=== PATIENT | male | born 1945 | race Caucasian/White ===

== ENCOUNTER 2021-10-25 10:36 | Inpatient (IN) | payer MEDICARE, BC, SELFPAY ==
[2021-10-25] VITALS (45 sets, daily range): BP systolic 82–142; BP diastolic 30–64; PULSE 34–224; RESP 12–41; TEMP 36.4–37.1; O2SAT 91–97
--- NOTE | 2021-10-25 10:30 | DI.RAD_ITS ---
Exam(s) XR CHEST 2V PA LATERAL EXAM: XR CHEST 2V PA LATERAL CLINICAL HISTORY: bradycardia TECHNIQUE: 2D digital imaging was performed. COMPARISON: No exams were available for comparison FINDINGS: MEDIASTINUM: Normal. HEART: Normal. PULMONARY VASCULATURE: Normal. LUNGS: Clear. PLEURAL SPACE: No pleural effusion or pneumothorax. BONE:Degenerative changes of the thoracic spine, unremarkable for age. IMPRESSION: No acute abnormality. DATA REPOSITORY: RADIATION DOSE DELIVERED:
--- NOTE | 2021-10-25 10:30 | RT.EKG_ITS ---
APPROVED REPORT Exam: Resting ECG Reason for Exam: dizzy Patient Location: E HR:66 bpm ECG Measurements Heart Rate 66 AXIS AL 147 P 35 QRSd 79 QRS 10 QT 429 T 81 QTc 451 Conclusion Sinus rhythm...normal P axis, V-rate 60- 99 Ventricular bigeminy...bigeminy string>4 w/ V complexes
--- NOTE | 2021-10-25 10:47 | W.ED.GENAD ---
Discharge Plan Disposition Patient Disposition: [facility] INPATIENT Condition: Stable Discharge Details Clinical Impression: Symptomatic bradycardia Primary Care Provider: Unknown,Unknown ED Provider: Malik Oseguera Home Meds and New Rx's Prescriptions: No Action metformin 500 mg Tablet 500 mg PO DAILY metoprolol succinate 200 mg Tablet Extended Release 24 Hr 200 mg PO DAILY clopidogrel 75 mg Tablet 75 mg PO DAILY amlodipine 5 mg Tablet 5 mg PO DAILY tamsulosin 0.4 mg Capsule 0.4 mg PO DAILY lisinopril 10 mg Tablet 10 mg PO DAILY finasteride 5 mg Tablet 5 mg PO DAILY coenzyme Q10 [CoQ-10] 100 mg Capsule 200 mg PO DAILY omega 5-fwh-fej-fish oil [Fish Oil] 1,200 (144-216) mg Capsule 1 cap PO DAILY aspirin 81 mg Capsule 81 mg PO DAILY Medical Decision Making 76-year-old male with history of coronary artery disease status post a total of 4 stents over 3 procedures. He has felt near syncopal 3 times in approximately 3 weeks. No syncope, but family have noted episodes of bradycardia. Today he was taking a shower, felt faint and hot, was noted to have bradycardia in the mid 30s. His son is a nurse in this ER and therefore the patient sought evaluation. [facility] typically has been seen [facility] [place], [place]. He reports to me that his watch has alarmed for bradycardia to the 40s for 10 minutes episodes at least 2 times in the past few weeks. He arrives with a pulse of 34, he is in bigeminy. He is normotensive, alert and interactive. He does take metoprolol 200 mg daily. Laboratories reveal normal troponin. Sodium was 135, potassium 5.3 chloride 100, bicarb 20, BUN 21 creatinine is 1.3. White blood cell count is elevated at 16, hematocrit 43 platelets 355. Chest x-ray with no acute findings, rapid COVID test neg. I received and reviewed the patient's records from the [facility]. He has diagnosis of coronary artery disease, BPH, type 2 diabetes, hyperlipidemia, hypertension. History history of medication use: 5 mg daily, aspirin 81 mg daily, vitamin D3 25 mcg daily, Plavix 75 mg daily, co-Q 200 mg daily, finasteride 5 mg daily, lisinopril 10 mg daily, lovastatin 40 mg daily, metformin 500 mg 3 times per day, metoprolol succinate 200 mg daily, tamsulosin 0.4 mg daily. Will consider admission for observation of symptomatic bradycardia that is most likely due to excessive amount of beta-waldo. HPI General Mode of arrival: ambulatory. Date/Time Provider Initiated Documentation: 10/25/21 10:37. Limitations to Documentation: no limitations. Information obtained by: patient and family. History of Present Illness 76 year old M presents to the emergency department with the chief complaint of Lightheaded, bradycardia, described as moderate, and is localized to the head. Patient reports no radiation. Patient started experiencing this hour(s) and it has been intermittent. Patient notes denies confusion, headaches and syncope. Patient did receive the following treatments prior to arrival, none Related Data Home Medications Medication Instructions Recorded Confirmed amlodipine 5 mg tablet 5 mg PO DAILY 10/25/21 10/25/21 aspirin 81 mg capsule 81 mg PO DAILY 10/25/21 10/25/21 clopidogrel 75 mg tablet 75 mg PO DAILY 10/25/21 10/25/21 coenzyme Q10 100 mg capsule 200 mg PO DAILY 10/25/21 10/25/21 (CoQ-10) finasteride 5 mg tablet 5 mg PO DAILY 10/25/21 10/25/21 lisinopril 10 mg tablet 10 mg PO DAILY 10/25/21 10/25/21 metformin 500 mg tablet 500 mg PO DAILY 10/25/21 10/25/21 metoprolol succinate 200 mg 200 mg PO DAILY 10/25/21 10/25/21 tablet,extended release 24 hr omega 7-qhq-zhc-fish oil 1,200 mg 1 cap PO DAILY 10/25/21 10/25/21 (144 mg-216 mg) capsule (Fish Oil) tamsulosin 0.4 mg capsule 0.4 mg PO DAILY 10/25/21 10/25/21 Allergies Allergy/AdvReac Type Severity Reaction Status Date / Time Sulfa (Sulfonamide Allergy Unverified 10/25/21 11:07 Antibiotics) General Stated Complaint: GenMedical TEMO: 2 Review of Systems Narrative: No syncope, otherwise well. Seen primarily at [facility]. 8 systems reviewed and otherwise neck PFSH All Active Problems (Updated 10/25/21 @ 12:43 by Malik Oseguera MD) Symptomatic bradycardia (Acute) BPH (benign prostatic hyperplasia) (Chronic) Hypertension (Chronic) Hyperlipidemia (Acute) DM2 (diabetes mellitus, type 2) (Acute) Coronary artery disease (Chronic) Social History Smoking/Tobacco Use Status: Never Smoking risk assessment performed?: Yes Alcohol Intake: never Drug use: Never Do you feel safe at home: Yes Do you feel safe in your relationship?: Yes Exam Narrative Exam Narrative: GEN: awake, alert, oriented 3. Pleasant, well groomed, interactive. HEAD: Normocephalic, atraumatic ENT: Mucous membranes moist, oropharynx unremarkable, External ear exam unremarkable EYES: PERRL, EOMI NECK: Full ROM, no FRANCISCO JAVIER, no menigismus CHEST/RESP: Nontender, clear to auscultation bilateral, no wheeze/rhonchi/rales CARDIOVASCULAR: Regular and bradycardic,, no murmur, rub kali. 2+ Rad pulse bilateral ABDOMEN: Soft, nontender, no mass. +Bowel sounds EXT: Full ROM, no edema, no rash Neuro: Grossly normal neurologic exam, conversant, interactive. Psych: Speech fluent, thoughts congruent, affect normal Course Vital Signs Vital signs: Vital Signs Temperature 36.4 C L 10/25/21 10:40 Pulse 34 L 10/25/21 10:40 Respiratory Rate 16 10/25/21 10:40 Blood Pressure 114/46 L 10/25/21 10:40 Pulse Oximetry 95 10/25/21 10:40 Temperature 36.4 C L 10/25/21 10:40 Temperature Source Temporal Artery Scan 10/25/21 10:40 Pulse 34 L 10/25/21 10:40 Respiratory Rate 16 10/25/21 10:40 Blood Pressure 114/46 L 10/25/21 10:40 Blood Pressure Position Sitting 10/25/21 10:40 Pulse Oximetry 95 10/25/21 10:40 Oxygen Delivery Method Room Air 10/25/21 10:40 Oxygen Flow Rate 0 10/25/21 10:40 Pain Level 0 10/25/21 10:40
[2021-10-25 11:08] LABS: Abs Immature Grans 0.38 10^3/uL (0.0-0.06); Absolute Basophil Count 0.05 10^3/uL (0.0-0.2); Absolute Eosinophil Count 0.18 10^3/uL (0.0-0.7); Absolute Lymphocyte Count 1.68 10^3/uL (1.2-3.4); Absolute Monocyte Count 0.91 10^3/uL (0.1-0.8); Basophils % 0.3; Eosinophils % 1.1; HCT 43.6 % (40.0-50.0); HGB 14.1 g/dL (13.5-17.5); Immature Grans % 2.3; Lymphocytes % 10.1; MCH 30.9 pg (27.0-33.0); MCHC 32.3 % (32.0-36.0); MCV 95 fL (80-95); Monocytes % 5.5; Neutrophils % 80.7; Platelet Count 355 10^3/uL (130-400); RBC 4.57 10^6/uL (4.36-5.78); RDW 12.7 % (11.8-14.1); WBC 16.62 10^3/uL (4.4-10.8)
[2021-10-25 11:10] LABS: Absolute Neutrophil Count 13.41 10^3/uL (1.2-6.7)
[2021-10-25 11:23] LABS: INR 1.3 (0.9-1.1); PTT Activated 24.2 sec (21.0-27.5); Prothrombin Time 12.7 sec (9.3-11.0)
[2021-10-25 11:29] LABS: ALT 43 U/L (16-63); AST 26 U/L (15-37); Albumin 3.6 g/dL (3.4-5.0); Alkaline Phosphatase 68 U/L (46-116); Anion Gap 6.5 mmol/L (3-11); BUN 21 mg/dL (7-18); Bilirubin, Total 0.7 mg/dL (0.2-1.0); CO2 28.5 mmol/L (21.0-32.0); CREATININE 1.3 mg/dL (0.70-1.30); Calcium 9.4 mg/dL (8.5-10.1); Chloride 100 mmol/L (98-107); Estimated GFR 53.53 (mL/min/1.73m2); Glucose 183 mg/dL (74-106); Potassium 5.3 mmol/L (3.5-5.1); Sodium 135 mmol/L (136-145); Total Protein 8.5 g/dL (6.4-8.2); Troponin I < 50 ng/L (<or=60)
[2021-10-25 11:55] LABS: COVID-19 PCR Negative (Negative); Influenza A PCR Negative (Negative); Influenza B PCR Negative (Negative); RSV PCR Negative (Negative)
[2021-10-25 11:59] LABS: Source Nasopharynx
--- NOTE | 2021-10-25 12:49 | HPE_ITS ---
Date of service: 10/25/21 Time of Service: 12:50 Assessment and Plan Assessment and plan (1) Symptomatic bradycardia: Status: Acute Assessment and plan: hold Toprol XL; give calcium gluconate, give gentle hydration; monitor rate and rhythm overnight w/ serial troponin levels and repeat EKG. Professional time spent interviewing and examining patient, discussion of goals of care with hospital team (care management, nursing and consulting professionals) was 60 minutes. (2) Coronary artery disease: Status: Chronic Assessment and plan: continue Plavix and ASA; hold beta waldo; check serial troponin I levels and EKG (3) DM2 (diabetes mellitus, type 2): Status: Acute Assessment and plan: will hold metformin until he has ruled completely out for ACS, if no further hypotension after his fluid bolus, could consider resumption of his metformin as he is not in ERNIE and not in CHF. will monitor glucose AC/HS and cover w/ SSI sensitive level (4) Hypertension: Status: Chronic Assessment and plan: currently mildly hypotensive will give iv fluids; hold amlodipine, Toprol XL, and lisinopril. monitor BP response (5) Hyperlipidemia: Status: Acute Assessment and plan: currently only taking omega 3 dha/epa fish oil; not on a statin (6) BPH (benign prostatic hyperplasia): Status: Chronic Assessment and plan: currently on flomax but will withold in setting of hypotension History of Present Illness History of Present Illness Chief Complaint: lightheaded, slow heart rate Narrative: 76 yr old male w/ PMH of CAD (s/p 4 stents total over 3 separate occasions) who has DM2 treated w/ oral meds (metformin) and HTN (on lisinopril, amlodipine and Toprol XL) who has been experiencing symptomatic bradycardia off and on for past 3 weeks in which he will get lightheaded and near syncopal. Today he was in the shower when he felt like he was going to pass out and his pulse was noted to be in the 30's. he wears a smart watch which monitors his HR and patient states that his watch has alarmed for bradycardia in the 40's for as long as 10 minutes at time and this happened at least twice in the last 3 weeks. Upon evaluation in the ER his pulse was 34 and his rhythm was sinus bradycardia w/ ventricular bigeminy. EKG did not show any advanced heart block but demonstrated sinus bradycardia w/ventricular bigeminy at rate of 66 bpm. His labs including CBC, CMP, troponin were all unremarkable except for WBC of 16,000. he has no fever, chills, or cough. SARS-COV2 nasal PCR was negative. He was mildly hypotensive on arrival at 96/32. He was given a bolus of iv fluids and per my recommendation is getting calcium gluconate to counteract the effects of his beta waldo. He will be admitted to med/surg on telemetry on observation status. His amlodipine, Toprol XL, finasteride and lisinopril will all be held to avoid hypotension and the Toprol will be held to reduce his bradycardia. Addendum: nursing will not allow med/surg admission d/t patient receiving calcium gluconate; therefore patient will be placed in ICU overnight. If his bradycardia resolves then he will be discharged home tomorrow off his beta waldo and with follow up cardiac monitoring. [facility] All Active Problems (Updated 10/25/21 @ 15:15 by Vlad Rosario MD) Symptomatic bradycardia (Acute) BPH (benign prostatic hyperplasia) (Chronic) Hypertension (Chronic) Hyperlipidemia (Acute) DM2 (diabetes mellitus, type 2) (Acute) Coronary artery disease (Chronic) Medical History (Updated 10/25/21 @ 15:15 by Vlad Rosario MD) History of non-ST elevation myocardial infarction (NSTEMI) Surgical History (Updated 10/25/21 @ 15:19 by lVad Rosario MD) Status post cholecystectomy s/p open cholecystectomy Status post primary angioplasty with coronary stent (~2005) 4 stents total over 3 procedures, last procedure approximately 2005, last one was done in [place], [place]; prior to that he had PCI done at [place], [place] Social History Smoking/Tobacco Use Status: Never Smoking risk assessment performed?: Yes Alcohol Intake: never Drug use: Never Do you feel safe at home: Yes Do you feel safe in your relationship?: Yes Meds Allergies and Home Medications Allergies Allergy/AdvReac Type Severity Reaction Status Date / Time Sulfa (Sulfonamide Allergy Unverified 10/25/21 11:07 Antibiotics) Home Medications Medication Instructions Recorded Confirmed Type amlodipine 5 mg tablet 5 mg PO DAILY 10/25/21 10/25/21 History aspirin 81 mg capsule 81 mg PO DAILY 10/25/21 10/25/21 History clopidogrel 75 mg tablet 75 mg PO DAILY 10/25/21 10/25/21 History coenzyme Q10 100 mg capsule 200 mg PO DAILY 10/25/21 10/25/21 History (CoQ-10) finasteride 5 mg tablet 5 mg PO DAILY 10/25/21 10/25/21 History lisinopril 10 mg tablet 10 mg PO DAILY 10/25/21 10/25/21 History metformin 500 mg tablet 500 mg PO DAILY 10/25/21 10/25/21 History metoprolol succinate 200 mg 200 mg PO DAILY 10/25/21 10/25/21 History tablet,extended release 24 hr omega 0-jap-uqj-fish oil 1,200 mg 1 cap PO DAILY 10/25/21 10/25/21 History (144 mg-216 mg) capsule (Fish Oil) tamsulosin 0.4 mg capsule 0.4 mg PO DAILY 10/25/21 10/25/21 History Exam Narrative Exam Narrative: Elderly white male in no acute distress sitting up in bed alert and oriented x3. HEENT is remarkable for glasses oropharynx noninjected teeth are in fair repair Neck is supple no JVD normal carotid pulses no thyromegaly Lungs are clear to auscultation Heart rate is in the 70s and regular with occasional ectopic beats no audible murmur rub gallop and no palpable thrill heave PMI is nondisplaced over the apex Abdomen is obese soft and nontender normal bowel sounds no guarding no rebound tenderness no bruits no organomegaly Extremities without peripheral cyanosis or edema he has intact pedal pulses normal sensation to light touch Neurologic exam grossly intact no dysarthric speech no focal motor or sensory deficits. No focal cranial nerve abnormalities. Results Labs Result diagrams: 10/25/21 11:00 10/25/21 11:00 Labs: Laboratory Results - last 24 hr 10/25/21 10/25/21 10/25/21 11:00 11:00 11:00 WBC 16.62 H RBC 4.57 Hgb 14.1 Hct 43.6 MCV 95 MCH 30.9 MCHC 32.3 RDW 12.7 Plt Count 355 MPV 9.0 Immature Gran % 2.3 Neutrophils % 80.7 Lymphocytes % 10.1 Monocytes % 5.5 Eosinophils % 1.1 Basophils % 0.3 Nucleated RBC % 0.0 Absolute Neutrophils 13.41 H Absolute Lymphocytes 1.68 Absolute Monocytes 0.91 H Absolute Eosinophils 0.18 Absolute Basophils 0.05 PT 12.7 H INR 1.3 H APTT 24.2 Sodium 135 L Potassium 5.3 H Chloride 100 Carbon Dioxide 28.5 Anion Gap 6.5 BUN 21 H Creatinine 1.3 Estimated GFR/1.73 m2 53.53 Glucose 183 H Calcium 9.4 Magnesium 2.0 Total Bilirubin 0.7 AST 26 ALT 43 Alkaline Phosphatase 68 Troponin I < 50 Total Protein 8.5 H Albumin 3.6 COVID-19 Source SARS-CoV-2 (PCR) Influenza Type A (PCR) Influenza Type B (PCR) RSV (PCR) 10/25/21 11:13 WBC RBC Hgb Hct MCV MCH MCHC RDW Plt Count MPV Immature Gran % Neutrophils % Lymphocytes % Monocytes % Eosinophils % Basophils % Nucleated RBC % Absolute Neutrophils Absolute Lymphocytes Absolute Monocytes Absolute Eosinophils Absolute Basophils PT INR APTT Sodium Potassium Chloride Carbon Dioxide Anion Gap BUN Creatinine Estimated GFR/1.73 m2 Glucose Calcium Magnesium Total Bilirubin AST ALT Alkaline Phosphatase Troponin I Total Protein Albumin COVID-19 Source Nasopharynx SARS-CoV-2 (PCR) Negative Influenza Type A (PCR) Negative Influenza Type B (PCR) Negative RSV (PCR) Negative Last Vital Signs Temp 36.4 C L 10/25/21 10:40 Pulse 64 10/25/21 11:46 Resp 17 10/25/21 11:46 BP 93/32 L 10/25/21 11:46 Pulse Ox 95 10/25/21 11:46
[2021-10-25] MEDS: Calcium Gluconate 4.65 MEQ/10 ML VIAL 4.65 MG IVP (13:02)
[2021-10-25] MEDS: Normal Saline 500 ML IV (13:02)
[2021-10-25 13:06] LABS: Bilirubin Negative (Negative); Blood Negative (Negative); Clarity Clear (Clear); Glucose Negative (Negative); Ketones Negative (Negative); Leukocyte Esterase Negative (Negative); Nitrite Negative (Negative); Specific Gravity 1.025 (1.005-1.025); Urobilinogen 0.2 EU/dL (Up TO 0.2)
[2021-10-25 13:55] LABS: Troponin I < 50 ng/L (<or=60)
--- NOTE | 2021-10-25 15:22 | POCUS_ITS ---
Pocus Exam Limited Cardiac Exam DATE OF EXAM: 10/25/21 TIME OF EXAM: 15:23 PROVIDER THAT PERFORMED THE STUDY: Vlad Rosario IS THIS A REPEAT STUDY: no REASON FOR EXAM: Hypotension VISUALIZED STRUCTURES: Four Chambers, Left atrium, Left ventricle, LVOT (LVOT diameter 2.1 cm), Right atrium, Right ventricle, Aortic valve, Mitral valve and Interventricular septum VIEW OBTAINED: Apical 4-Chamber, Parasternal long-axis, Parasternal short-axis and Subxiphoid PERTINENT FINDINGS/IMPRESSION: LV dysfunction (CO 5.0 L/min. SV 76.4 mL, LVOT VTI 23.0 cm @ HR 66 bpm) :mild (apical hypokinesis, otherwise normal wall motion ) DIFFERENTIAL DIAGNOSES: hypotension secondary to hypovolemia, and vasodilator therapy in setting of b radycardia and continued use of beta waldo; ACS possible although no ischemic EKG changes and negative troponin; adequate cardiac output of 5.0 L/minute Exam complete
[2021-10-25] MEDS: Enoxaparin 40 MG/0.4 ML SYR SC (16:27)
[2021-10-25] MEDS: Insulin Aspart 300 UNITS/3 ML PEN SC (17:27)
[2021-10-25 17:30] LABS: Troponin I < 50 ng/L (<or=60)
[2021-10-26] VITALS (26 sets, daily range): BP systolic 95–180; BP diastolic 47–75; PULSE 41–150; RESP 10–26; TEMP 36.4–36.8; O2SAT 92–97
--- NOTE | 2021-10-26 07:45 | RT.EKG_ITS ---
APPROVED REPORT Exam: Resting ECG Reason for Exam: SR to Afib Patient Location: I HR:107 bpm ECG Measurements Heart Rate 107 AXIS OK [id number] P [id number] QRSd 79 QRS -3 QT 342 T 88 QTc 457 Conclusion Atrial fibrillation...V-rate 84-147, irreg A-activity
--- NOTE | 2021-10-26 08:12 | PGE_ITS ---
Date of Service Date of service: 10/26/21 Time of Service: 08:12 Assessment and Plan Assessment and plan (1) Symptomatic bradycardia: Status: Acute Assessment and plan: Bradycardia resolved with holding his Toprol-XL. He has since gone into atrial fibrillation with RVR but is since converted after single dose of Lopressor. We will start on low-dose oral Lopressor and monitor today. Start apixaban 5 mg twice daily. DC aspirin continue Plavix. (2) Coronary artery disease: Status: Chronic Assessment and plan: No symptoms of chest pain or dyspnea. Troponins were negative. will continue Plavix but stop aspirin in light of needing apixaban. Patient needs local clinical education specialist to follow him. I will ask Dr. Reed to see him here and set him up for outpatient follow up. (3) DM2 (diabetes mellitus, type 2): Status: Acute Assessment and plan: resume metformin; continue monitoring glucose AC/HS w/ SSI (4) Hypertension: Status: Chronic Assessment and plan: continue to hold his amlodipine; resume lopressor at low dose; monitor and adjust his BB (5) Hyperlipidemia: Status: Acute Assessment and plan: currently only taking omega 3 dha/epa fish oil; not on a statin (6) BPH (benign prostatic hyperplasia): Status: Chronic Assessment and plan: continue his Proscar; resume his Flomax but will give at night Subjective Subjective Interval history since last seen: Patient feels well this morning denies any chest pain or dyspnea. Unfortunately he went into atrial fibrillation with a rapid rate in the 130s to 150s but then slowed down into the low 100s on its own and finally converted back into sinus rhythm after single dose of Lopressor 5 mg IV push. To the best of his knowledge she has had no previous history of irregular heart rhythms. However he came in to the hospital because of severe bradycardia causing symptoms. I discontinued his Toprol-XL on admission. I told him we would need to restart his metoprolol but we would begin at a lower dose using short acting Lopressor rather than Toprol-XL. I also reviewed his risk for stroke and thromboembolic events. According to [id number] score of 5 he is high risk but with Eliquis we can reduce his risk down to 2.6% which was an absolute reduction of 7.4% compared to not taking anticoagulant. However the patient has been on aspirin and Plavix for his coronary stents are several years old. I will keep him on the Plavix for its antiplatelet effect stop his aspirin and start him on Eliquis. I will also ask cardiology to see him as he has no local clinical education specialist that he follows up with. Hopefully if his rhythm remains in sinus rhythm on Lopressor he could go home tomorrow or possibly even later today. Exam Narrative Exam Narrative: Elderly gentleman lying in bed just having had his breakfast is watching TV he is alert and oriented person place time circumstance Heart was irregularly irregular and a rapid rate but now is back into a regular rhythm. Soft grade 2/6 murmur at the apex no thrill or heave Abdomen soft nontender normal bowel sounds Lower extremities without peripheral cyanosis or edema Objective Last Vital Signs Temp 36.8 C 10/26/21 07:23 Pulse 68 10/26/21 07:23 Resp 17 10/26/21 06:01 BP 147/53 H 10/26/21 06:01 Pulse Ox 96 10/26/21 06:01 Laboratory Results - last 24 hr 10/25/21 10/25/21 10/25/21 11:00 11:00 11:00 WBC 16.62 H RBC 4.57 Hgb 14.1 Hct 43.6 MCV 95 MCH 30.9 MCHC 32.3 RDW 12.7 Plt Count 355 MPV 9.0 Immature Gran % 2.3 Neutrophils % 80.7 Lymphocytes % 10.1 Monocytes % 5.5 Eosinophils % 1.1 Basophils % 0.3 Nucleated RBC % 0.0 Absolute Neutrophils 13.41 H Absolute Lymphocytes 1.68 Absolute Monocytes 0.91 H Absolute Eosinophils 0.18 Absolute Basophils 0.05 PT 12.7 H INR 1.3 H APTT 24.2 Sodium 135 L Potassium 5.3 H Chloride 100 Carbon Dioxide 28.5 Anion Gap 6.5 BUN 21 H Creatinine 1.3 Estimated GFR/1.73 m2 53.53 Glucose 183 H Calcium 9.4 Magnesium 2.0 Total Bilirubin 0.7 AST 26 ALT 43 Alkaline Phosphatase 68 Troponin I < 50 Total Protein 8.5 H Albumin 3.6 Urine Color Urine Clarity Urine pH Ur Specific [place] Urine Protein Urine Ketones Urine Blood Urine Nitrite Urine Bilirubin Urine Urobilinogen Ur Leukocyte Esterase Urine Glucose COVID-19 Source SARS-CoV-2 (PCR) Influenza Type A (PCR) Influenza Type B (PCR) RSV (PCR) 08/18/22 08/18/22 08/18/22 11:13 12:28 13:00 WBC RBC Hgb Hct MCV MCH MCHC RDW Plt Count MPV Immature Gran % Neutrophils % Lymphocytes % Monocytes % Eosinophils % Basophils % Nucleated RBC % Absolute Neutrophils Absolute Lymphocytes Absolute Monocytes Absolute Eosinophils Absolute Basophils PT INR APTT Sodium Potassium Chloride Carbon Dioxide Anion Gap BUN Creatinine Estimated GFR/1.73 m2 Glucose Calcium Magnesium Total Bilirubin AST ALT Alkaline Phosphatase Troponin I < 50 Total Protein Albumin Urine Color Yellow Urine Clarity Clear Urine pH 6.0 Ur Specific [place] 1.025 Urine Protein Negative Urine Ketones Negative Urine Blood Negative Urine Nitrite Negative Urine Bilirubin Negative Urine Urobilinogen 0.2 Ur Leukocyte Esterase Negative Urine Glucose Negative COVID-19 Source Nasopharynx SARS-CoV-2 (PCR) Negative Influenza Type A (PCR) Negative Influenza Type B (PCR) Negative RSV (PCR) Negative 10/25/21 17:05 WBC RBC Hgb Hct MCV MCH MCHC RDW Plt Count MPV Immature Gran % Neutrophils % Lymphocytes % Monocytes % Eosinophils % Basophils % Nucleated RBC % Absolute Neutrophils Absolute Lymphocytes Absolute Monocytes Absolute Eosinophils Absolute Basophils PT INR APTT Sodium Potassium Chloride Carbon Dioxide Anion Gap BUN Creatinine Estimated GFR/1.73 m2 Glucose Calcium Magnesium Total Bilirubin AST ALT Alkaline Phosphatase Troponin I < 50 Total Protein Albumin Urine Color Urine Clarity Urine pH Ur Specific [place] Urine Protein Urine Ketones Urine Blood Urine Nitrite Urine Bilirubin Urine Urobilinogen Ur Leukocyte Esterase Urine Glucose COVID-19 Source SARS-CoV-2 (PCR) Influenza Type A (PCR) Influenza Type B (PCR) RSV (PCR)
[2021-10-26] MEDS: Aspirin E.C. 81 MG TABEC PO (08:15)
[2021-10-26] MEDS: Metoprolol 5 MG/5 ML VIAL IVP (08:15)
[2021-10-26] MEDS: Clopidogrel 75 MG TAB PO (08:15)
[2021-10-26] MEDS: Enoxaparin 40 MG/0.4 ML SYR SC (08:17)
--- NOTE | 2021-10-26 08:30 | INITIAL_ITS ---
- If Service Date Differs Date of service: 10/26/21 Time of Service: 08:30 Care Management Initial Assess REASON FOR HOSPITALIZATION:: symptomatic bradycardia PAST MEDICAL HISTORY/PAST SURGICAL HISTORY:: All Active Problems (Updated 10/25/21 @ 15:15 by Vlad Rosario MD). Symptomatic bradycardia (Acute). BPH (benign prostatic hyperplasia) (Chronic). Hypertension (Chronic). Hyperlipidemia (Acute). DM2 (diabetes mellitus, type 2) (Acute). Coronary artery disease (Chronic). Medical History (Updated 10/25/21 @ 15:15 by Vlad Rosario MD). History of non-ST elevation myocardial infarction (NSTEMI). Surgical History (Updated 10/25/21 @ 15:19 by Vlad Rosario MD). Status post cholecystectomy. s/p open cholecystectomy. Status post primary angioplasty with coronary stent (~2005). 4 stents total over 3 procedures, last procedure approximately 2005, last one was done in [place], [place]; prior to that he had PCI done at [place], [place] PREVIOUS FUNCTIONAL STATUS/SOCIAL/FAMILY SUPPORTS:: Uli lives alone in a single family home in [place], [place]. He has 2 sons who live locally and are very supopoirtive. His son Quincy works in the ED at [employer]. Uli is independent at baseline and receives no community services. CURRENT FUNCTIONAL STATUS:: Uli was sitting up in a chair visiting with his 2 sons when CM met with him. He was cheerful and interacted well with CM. He admitted that he was disappointed that he would need to stay another day. He came in with symptomatic bradycardia which has resolved but went into rapid a fib this morning. That too has resolved but his provider wants to keep him until tomorrrow to ensure it does not reoccur. ADVANCE DIRECTIVES:: On file. Quincy Hall, son, FORMERLY [facility] Has patient been provided with info about the portal/API?: Yes Did the patient sign up for the portal?: No CODE STATUS:: Full Code INSURANCE COVERAGE / FINANCIAL ISSUES:: Medicare. BS PRIMARY CARE PHYSICIAN:: none local POTENTIAL DISCHARGE NEEDS:: follow up with PCP and cardiology PATIENT/FAMILY EDUCATION NEEDS:: Review of discharge instructions, limitations, medications, activity, follow up plan [employer] Me Three TRANSPORTATION:: [employer] private vehicle PLAN:: Walter will likely be discharged home with no new services. He will follow up with his community providers and plan of care and transport with family. CM will support [place] and assess for discharge needs.
[2021-10-26] MEDS: Metoprolol 25 MG TAB PO ×3 (08:45→20:19)
[2021-10-26] MEDS: Docusate Sodium 100 MG CAP PO (08:46)
[2021-10-26] MEDS: Polyethylene Glycol 3350 17 GM PACKET PO (08:46)
[2021-10-26] MEDS: Insulin Aspart 300 UNITS/3 ML PEN SC ×4 (08:47→17:29)
--- NOTE | 2021-10-26 10:00 | RT.EKG_ITS ---
APPROVED REPORT Exam: Resting ECG Reason for Exam: conversion from afib to sinus rhythm Patient Location: I HR:72 bpm ECG Measurements Heart Rate 72 AXIS NE 137 P 22 QRSd 83 QRS 7 QT 396 T 84 QTc 434 Conclusion Sinus rhythm...normal P axis, V-rate 50- 99 Ventricular trigeminy...trigeminy string>6 w/ V complexes
[2021-10-26 11:27] LABS: Abs Immature Grans 0.18 10^3/uL (0.0-0.06); Absolute Basophil Count 0.04 10^3/uL (0.0-0.2); Absolute Lymphocyte Count 1.86 10^3/uL (1.2-3.4); Absolute Monocyte Count 1.06 10^3/uL (0.1-0.8); Absolute Neutrophil Count 7.92 10^3/uL (1.2-6.7); Basophils % 0.4; Eosinophils % 0.5; HCT 42.1 % (40.0-50.0); HGB 13.7 g/dL (13.5-17.5); Immature Grans % 1.6; Lymphocytes % 16.7; MCHC 32.5 % (32.0-36.0); MCV 95 fL (80-95); Monocytes % 9.5; Neutrophils % 71.3; Platelet Count 354 10^3/uL (130-400); RBC 4.42 10^6/uL (4.36-5.78); RDW 12.9 % (11.8-14.1); RDW-SD 45.3 fL; WBC 11.11 10^3/uL (4.4-10.8)
[2021-10-26 11:28] LABS: Absolute Eosinophil Count 0.06 10^3/uL (0.0-0.7)
[2021-10-26 11:39] LABS: Anion Gap 4.9 mmol/L (3-11); BUN 20 mg/dL (7-18); CO2 31.1 mmol/L (21.0-32.0); CREATININE 1.3 mg/dL (0.70-1.30); Calcium 9.3 mg/dL (8.5-10.1); Chloride 100 mmol/L (98-107); Estimated GFR 53.53 (mL/min/1.73m2); Glucose 171 mg/dL (74-106); Potassium 4.9 mmol/L (3.5-5.1); Sodium 136 mmol/L (136-145)
[2021-10-26 11:41] LABS: C-Reactive Protein 0.94 mg/dL (0.0-0.3)
[2021-10-26 12:02] LABS: Procalcitonin < 0.1 ng/mL
[2021-10-26] MEDS: Pantoprazole 40 MG TABCR PO (12:18)
[2021-10-26] MEDS: metFORMIN 500 MG TAB PO (12:19)
[2021-10-26] MEDS: Finasteride 5 MG TAB PO (12:19)
[2021-10-26] MEDS: Apixaban 5 MG TAB PO ×2 (12:19→20:21)
--- NOTE | 2021-10-26 13:37 | CHAPLAIN ---
Walter Mcnally was resting in bed when I visited. He is from [place] and his son, Dom, an ED nurse at [employer]. Uli's unexpectedly about two years ago. He is well supported by family, including Dom. Uli was pleasant, and looking forward to getting home. He'll be staying another night to make sure his cardiac medication is working.
--- NOTE | 2021-10-26 15:46 | PHA.REVIEW ---
Pharmacy Admission Review - Admission Clinical Review (Last Updated 10/25/21 @ 15:15 by Vlad Rosario MD) Symptomatic bradycardia (Acute) Hyperlipidemia (Acute) DM2 (diabetes mellitus, type 2) (Acute) Sulfa (Sulfonamide Antibiotics) Allergy (Unverified 10/25/21 11:07) Resuscitation Status Full Code Height 5 ft 10 in Weight 89 kg - Renal Dosing Renal Dosing: BUN 20 mg/dL (7-18) H 10/26/21 11:20 Creatinine 1.3 mg/dL (0.70-1.30) 10/26/21 11:20 Medications needing adjustments: N/A (crcl = 53) - Anticoagulation Anticoagulation: Hgb 13.7 g/dL (13.5-17.5) 10/26/21 11:20 Hct 42.1 % (40.0-50.0) 10/26/21 11:20 Plt Count 354 10^3/uL (130-400) 10/26/21 11:20 INR 1.3 (0.9-1.1) H 10/25/21 11:00 Creatinine 1.3 mg/dL (0.70-1.30) 10/26/21 11:20 DVT Prophylaxis: Reviewed Medications: Apixaban (enoxaparin dc'd this morning, apixiban started) Therapeutic Anticoagulation: Reviewed Medications: Apixaban (apixiban 5 mg BID started today (new onset Afib), enoxaparin & ASA dc'd. Continuing on plavix (stents). [id number] score = 5) - Opiate Usage Evaluate Pain Scale/Pains Meds: N/A (none) - Relevant Labs Sodium 136 mmol/L (136-145) 10/26/21 11:20 Potassium 4.9 mmol/L (3.5-5.1) 10/26/21 11:20 Chloride 100 mmol/L (98-107) 10/26/21 11:20 Magnesium 2.0 mg/dL (1.8-2.4) 10/25/21 11:00 C-Reactive Protein 0.94 mg/dL (0.0-0.3) H 10/26/21 11:20 Electrolytes, C-Reactive P, ESR: Reviewed - DM Control DM Control: Glucose 171 mg/dL (74-106) H 10/26/21 11:20 Finger Stick Blood Glucose 147 Finger Stick Blood Glucose 147 Finger Stick Blood Glucose 147 Finger Stick Blood Glucose 147 Finger Stick Blood Glucose 138 Finger Stick Blood Glucose 138 Finger Stick Blood Glucose 138 Insulin Dosing: Reviewed (insulin aspart SS +1 unit per 10g CHO w/meals, metformin restarted) - Heart Failure/NJ Heart Failure/NJ: Troponin I < 50 ng/L (<or=60) 10/25/21 17:05 EF%, SANDOVAL's, B-Blockers, Diuretics: Reviewed (metoprolol restarted as short acting Lopressor (metoprolol tartrate) 25 mg Q6 - home dose is Toprol XL (metoprolol succinate) 200 mg daily (pt admitted with bradycardia). 5 mg IV Lopressor Q1hprn ordered for sustained HR >130 (did receive a dose at 0815 today). New onset Afib) - BP Control BP Control: Blood Pressure 131/55 Blood Pressure 120/58 Blood Pressure 95/72 Blood Pressure 112/55 Blood Pressure 101/57 Blood Pressure 137/66 Blood Pressure 135/69 Blood Pressure 135/69 Blood Pressure 147/53 Blood Pressure 125/47 If elevated: Reviewed (went into Afib this morning (HR 130s-150s), slowed to 100s spontaneously then converted back into sinus rhythm after 5 mg Lopressor IV push) - Qtc Review If Elevated: N/A (QTc = 451) - IV to PO Switch IV Medications: Reviewed (only IV med is PRN Lopressor) - Home Meds Home Med List reviewed: Reviewed (amlodipine & lisinopril held (hypotension). Co-enzyme Q10 not on formulary here, will put on hold as patient has not supplied from home) - Current meds Current Medication Order Review: Reviewed
[2021-10-26] MEDS: amLODIPine 5 MG TAB PO (21:02)
[2021-10-26] MEDS: Tamsulosin 0.4 MG CAPCR PO (22:28)
[2021-10-27] MEDS: Metoprolol 25 MG TAB PO ×2 (02:04→08:32)
[2021-10-27 03:05] VITALS: BP 136/83; PULSE 68; RESP 15; TEMP 36.1; O2SAT 98
[2021-10-27 07:00] VITALS: PULSE 52
[2021-10-27 07:30] VITALS: BP 145/69; PULSE 66; RESP 16; TEMP 36.6; O2SAT 97
[2021-10-27] MEDS: Finasteride 5 MG TAB PO (08:32)
[2021-10-27] MEDS: Clopidogrel 75 MG TAB PO (08:32)
[2021-10-27] MEDS: Pantoprazole 40 MG TABCR PO (08:32)
[2021-10-27] MEDS: Apixaban 5 MG TAB PO (08:32)
[2021-10-27] MEDS: metFORMIN 500 MG TAB PO (08:32)
--- NOTE | 2021-10-27 09:44 | DSE_ITS ---
Date of service: 10/27/21 Time of Service: 09:44 DS: Diagnosis Discharge Diagnosis (1) Symptomatic bradycardia: Status: Acute (2) Coronary artery disease: Status: Chronic (3) DM2 (diabetes mellitus, type 2): Status: Acute (4) Hypertension: Status: Chronic (5) Hyperlipidemia: Status: Acute (6) BPH (benign prostatic hyperplasia): Status: Chronic Discharge Plan Disposition Patient Disposition: HOME Condition: Stable Discharge Details Reason For Visit: Bradycardia,Hypotension,Ventricular Bigeminy Admit Date/Time: 10/25/21 12:42 Admit Provider: Vlad Rosario Attending Provider: Vlad Rosario Primary Care Provider: Unknown,Unknown Hospital Course Hospital Course: Mr Hall is a 76 year old male with PMHx of CAD s/p 4 stents, as well as non- insulin dependent DM2, HTN, hyperlipidemia, who was admitted to [facility] hospitalist service on 10/25/21 with symptomatic bradycardia w/ HR in the 30s per smart watch and hyptension w/ BP of 96/32. The patietn did have near syncope at home associated with these findings. This was felt to be due to excessive beta blockade in addition to his antihypertensive regimen. He ruled out of ACS. The patient received calcium gluconate, IVF while his antihypertensives including his metoprolol XL were held. With these measures he felt better and both his HR and BP improved. His point of care echo showed adequate cardiac output with mild apical hypokinesis. Formal echocardiography was not available during the patient's stay. The patient's beta blockers were reintroduced at an reduced dose when he went into rapid Afib on the morning of 10/26/21. He did converted back to NSR upon administration of IV lopressor. He was initiated on eliquis in addition to his plavix while his aspirin and fish oil were discontinued. The patient is being referred to outpatient cardiology for further treatment. He will need extended cardiac monitoring. His PCP should consider a referral for an outpatient sleep study. He should also consider a formal echocardiogram. He may require alternative lipid therapy as the fish oil was discontinued in light of increased risk of bleeding on combined antiplatelet and anticoagulation therapy. ON discharge, he is on toprol XL 100 mg daily. His amlodipine and lisinopril have been discontinued until follow up with his PCP. He is stable for discharge home today. Care for patient as well as completion of his discharge summary on the day of discharge took 45 minutes. Home Meds and New Rx's Prescriptions: New Eliquis 5 mg Tablet 5 mg PO BID Qty: 60 0RF metoprolol succinate 100 mg Tablet Extended Release 24 Hr 100 mg PO DAILY Qty: 30 0RF pantoprazole 40 mg Tablet,Delayed Release (Dr/Ec) 40 mg PO DAILY@0730 Qty: 30 0RF Continued metformin 500 mg Tablet 500 mg PO DAILY clopidogrel 75 mg Tablet 75 mg PO DAILY tamsulosin 0.4 mg Capsule 0.4 mg PO DAILY finasteride 5 mg Tablet 5 mg PO DAILY coenzyme Q10 [CoQ-10] 100 mg Capsule 200 mg PO DAILY Discontinued metoprolol succinate 200 mg Tablet Extended Release 24 Hr 200 mg PO DAILY amlodipine 5 mg Tablet 5 mg PO DAILY lisinopril 10 mg Tablet 10 mg PO DAILY omega 0-ses-swz-fish oil [Fish Oil] 1,200 (144-216) mg Capsule 1 cap PO DAILY aspirin 81 mg Capsule 81 mg PO DAILY Discharge Instructions Instructions: Apixaban (By mouth), A-fib (Atrial Fibrillation) (DC), Hypotension (DC), Bradycardia (DC) Additional Instructions: Carefully review your medication changes. Return to the hospital with any fever, bleeding, chest pain, or shortness of breath. Follow up with your PCP in 1-2 weeks. Follow up with cardiology (referral is being sent). Follow up for a cardiac event recorder (you should receive a call on Friday). Stand Alone Forms: Nursing Discharge Form Referrals: Mckayla Reed MD [ [facility] STAFF PHYSICIAN] - (Please call Friday to make a follow up appointment.) Camilo Abraham [ NON-[facility] STAFF PHYSICIAN] - (Please call Friday to make a follow up appointment.) Activity:: Activity as Tolerated Equipment/Supplies:: cardiac event recorder Diet:: carb consistent heart healthy Discharge Orders Discharge Orders: Discharge Order (Routine); Ordered 10/27/21 Ordered By: Mery Cherry Other Ambulatory Orders: Cardiac Event Recorder (Routine) Timeframe: 20211029 Facility: [facility] - Location: Respiratory Therapy Ordered By: Mery Cherry DS: Summary Time Spent with Patient providing and/or coordinating discharge services: Greater than 30 minutes Status at Discharge Functional status at discharge: independent ambulation Overall status at discharge: patient is back to baseline Mental Status: mental status grossly normal Speech and Movement: speech and movement normal Mood: congruent mood Affect: normal affect Exam Narrative Exam Narrative: General: Pleasant male who is in good spirits, on RA, A&Ox3, laying nearly flat in bed without dyspnea or tachypnea HEENT: EOMI, MMM Heart: RRR, no m/r/g Lungs: ?crackles at R base Abdomen: soft, nontender, nondistended Extremities: trace edema BLEs Psych Mental Status: mental status grossly normal Speech and Movement: speech and movement normal Mood: congruent mood Affect: normal affect DS: Data Vitals/I&O Vitals and I&O: Vital Signs Temperature 36.6 C 10/27/21 07:30 Temperature Source Tympanic 10/27/21 07:30 Pulse 66 10/27/21 07:30 Pulse Rhythm Irregular 10/27/21 04:36 Pulse 64 10/26/21 16:01 Respiratory Rate 16 10/27/21 07:30 Respiratory Effort 10/27/21 04:36 Respiratory Depth Normal 10/27/21 04:36 Respiratory Pattern Normal 10/27/21 04:36 Blood Pressure 145/69 H 10/27/21 07:30 Blood Pressure Mean 85 10/26/21 16:01 Blood Pressure Position Supine 10/26/21 07:23 Pulse Oximetry 97 10/27/21 07:30 Oxygen Delivery Method Room Air 10/27/21 07:30 Oxygen Flow Rate 0 10/27/21 07:30 Pain Level 0 10/27/21 07:30 Comment First machine 180/71, second machine 190/77, Manual 180/75 (twice) 10/26/21 20:38 Intake & Output 10/26/21 10/26/21 10/27/21 11:59 23:59 11:59 Intake Total 120 / 650 530 / 650 Output Total 950 / 1825 875 / 1825 Balance -830 / -1175 -345 / -1175 Weight 89 kg 88.2 kg Intake: Oral 120 / 650 530 / 650 Output: Urine 950 / 1825 875 / 1825 Other: Urine Color Yellow Pale Yellow Urine Appearance Clear Clear Urine Odor None None Comment void x 3 Stool Size Small Stool Characteristics Hard Voiding Methods Urinal Urinal Data Completed and Pending Completed studies during hospitalization [Text1]: CXR; No acute abnormality.? Labs on day of discharge: Labs from last 24 hours 10/26/21 10/26/21 10/26/21 11:20 11:20 11:20 WBC 11.11 H RBC 4.42 Hgb 13.7 Hct 42.1 MCV 95 MCH 31.0 MCHC 32.5 RDW 12.9 Plt Count 354 MPV 9.0 Immature Gran % 1.6 Neutrophils % 71.3 Lymphocytes % 16.7 Monocytes % 9.5 Eosinophils % 0.5 Basophils % 0.4 Nucleated RBC % 0.0 Absolute Neutrophils 7.92 H Absolute Lymphocytes 1.86 Absolute Monocytes 1.06 H Absolute Eosinophils 0.06 Absolute Basophils 0.04 Sodium 136 Potassium 4.9 Chloride 100 Carbon Dioxide 31.1 Anion Gap 4.9 BUN 20 H Creatinine 1.3 Estimated GFR/1.73 m2 53.53 Glucose 171 H Calcium 9.3 C-Reactive Protein Procalcitonin < 0.1 10/26/21 11:20 WBC RBC Hgb Hct MCV MCH MCHC RDW Plt Count MPV Immature Gran % Neutrophils % Lymphocytes % Monocytes % Eosinophils % Basophils % Nucleated RBC % Absolute Neutrophils Absolute Lymphocytes Absolute Monocytes Absolute Eosinophils Absolute Basophils Sodium Potassium Chloride Carbon Dioxide Anion Gap BUN Creatinine Estimated GFR/1.73 m2 Glucose Calcium C-Reactive Protein 0.94 H Procalcitonin PFSH All Active Problems (Updated 10/27/21 @ 10:06 by Mery Cherry MD) Paroxysmal atrial fibrillation with rapid ventricular response (Acute) Symptomatic bradycardia (Acute) BPH (benign prostatic hyperplasia) (Chronic) Hypertension (Chronic) Hyperlipidemia (Acute) DM2 (diabetes mellitus, type 2) (Acute) Coronary artery disease (Chronic) Medical History (Updated 10/27/21 @ 10:06 by Mery Cherry MD) History of non-ST elevation myocardial infarction (NSTEMI) Surgical History (Updated 10/25/21 @ 15:19 by Vlad Rosario MD) Status post cholecystectomy s/p open cholecystectomy Status post primary angioplasty with coronary stent (~2005) 4 stents total over 3 procedures, last procedure approximately 2005, last one was done in [place], [place]; prior to that he had PCI done at [place], [place] Social History Smoking/Tobacco Use Status: Never Smoking risk assessment performed?: Yes Alcohol Intake: never Drug use: Never Do you feel safe at home: Yes Do you feel safe in your relationship?: Yes
--- NOTE | 2021-10-27 09:45 | IN_ITS ---
Date of service: 10/27/21 Time of Service: 09:45 PT Notes Visit Reasons: Bradycardia,Hypotension,Ventricular Bigeminy Physical Therapy Inpatient Initial Evaluation Date: 10/27/2021 Referring Doctor: Vlad Cisneros MD PT Orders: PT CONSULT: Safety consult for D/C Precautions: Fall. Standard. Activity as tolerated. Patient Profile/Admitting Diagnosis: Uli is a 76-year-old male who presented to the ED on 10/25/2021 due to feeling of near faintingearly this morning while in the shower with previous 3 near fainting sensations in the past 3 weeks. Patient is diagnosed with symptomatic bradycardia, CAD, DM type II, HTN, hyperlipidemia, and BPH. PMHX: All Active Problems?(Updated 10/25/21 @ 15:15 by Vlad Rosario MD) Symptomatic bradycardia (Acute) BPH (benign prostatic hyperplasia) (Chronic) Hypertension (Chronic) Hyperlipidemia (Acute) DM2 (diabetes mellitus, type 2) (Acute) Coronary artery disease (Chronic) Medical History?(Updated 10/25/21 @ 15:15 by Vlad Rosario MD) History of non-ST elevation myocardial infarction (NSTEMI) Surgical History?(Updated 10/25/21 @ 15:19 by Vlad Rosario MD) Status post cholecystectomy s/p open cholecystectomy Status post primary angioplasty with coronary stent (~2005) 4 stents total over 3 procedures, last procedure approximately 2005, last one was done in [place], [place]; prior to that he had PCI done at [place], [place] Social History/Home Situation: Lives alone in a private home with 2 steps to enter. Independent with all aspects of ADLs without an assistive device. Works 2 jobs. Equipment Owned/DME: None Subjective: Agreeable to PT consult. Denies fainting sensation, lightheadedness, chest pain, and headaches throughout session. Objective: General Observation: Supine in bed. Conversing with 2 sons in the room. In NAD. On telemtery motnitoring. Mental Status: Alert and oriented as to person, place, time, and purpose. Able to pay attention, focus, and respond appropriately. Pain: Denies Vital Signs: WNL as closely monitored via tele ROM: Right Upper Extremity: Shoulder Flexion WFL. Shoulder abduction WFL. Elbow flexion WFL. Wrist flexion WFL. Functional opening and closing of hand WFL. Left Upper Extremity: Shoulder Flexion WFL. Shoulder abduction WFL. Elbow flexion WFL. Wrist flexion WFL. Functional opening and closing of hand WFL. Right Lower Extremity: Hip flexion WFL. Hip abduction WFL. Knee flexion WFL. Ankle dorsiflexion WFL. Ankle plantarflexion WFL. Left Lower Extremity: Hip flexion WFL. Hip abduction WFL. Knee flexion WFL. Ankle dorsiflexion WFL. Ankle plantarflexion WFL. Strength: Right Upper Extremity: Shoulder flexors 5/5. Shoulder abductors 5/5. Elbow flexors 5/5. Elbow extensors 5/5. Churn Operator strong. Left Upper Extremity: Shoulder flexors 5/5. Shoulder abductors 5/5. Elbow flexors 5/5. Elbow extensors 5/5. Churn Operator strong. Right Lower Extremity: Hip flexors 5/5. Hip abductors 5/5. Knee flexors 5/5. Knee extensors 5/5. Ankle dorsiflexors 5/5. Ankle plantarflexors 5/5. Left Lower Extremity: Hip flexors 55/5. Hip abductors 5/5. Knee flexors 5/5. Knee extensors 5/5. Ankle dorsiflexors 5/5. Ankle plantarflexors /5. Bed Mobility/Transfers: Rolling independent Supine to sit independent Sit to supine independent Sit to stand independent Stand to sit independent Bed to reclining chair independent Reclining chair to bed independent Gait: Instructed patient with level surface ambulation of 300 feet independently requiring no assistive device. Gait pattern unremarkable. Mild shortness of breath that resolved with rest. Mild SOB that resolved with rest. Stairs: Up and down 6 x 4 inch steps and 4 x 6 inch steps while holding onto 1 rail with step over step pattern independently. Mild SOB that resolved with rest. Balance: Static Sitting: Normal Dynamic Sitting: Normal Static Standing: Normal Dynamic Standing: Good Special Tests: Mobility Limitations Standardized Measure [facility] 6 clicks Basic Mobility Inpatient Short Form: Raw Score: 24 CMS Score: 0% deficit Informed Consent/Education: Patient was instructed in purpose of PT consult and plan of care. Assessment: Patient is independent with all mobility ADl performance with no assistive device needed. No skilled services are needed at thsi time. Patient is assessed as a 16901 low complexity based on the following: History: 76-year-old male with past medical history as indicated above Examination: Demonstrable no impairment in strength, balance, and mobility level with underlying impairments and functional limitations Presentation: Stable Decision Makin low complexity Goals: N/A. PT evaluation only. Plan of Care/Treatment Plan: N/A. PT evaluation only. DISCHARGE RECOMMENDATIONS: [X] Home with no services. Home when medically cleared by hospitalist. No equipment needs at this time. No home health services needed at this time. [] Home with services [specify] [] Home with outpatient PT [] [] SNF for continued rehabilitation [] [] Product Support Rep Care [] [] SNF versus LTC based on ability to participate and progress [] TREATMENT CODE/TIME: 22878 x 18 minutes beginning at 9:45 AM. Thank you for the opportunity to participate in the care of this patient. Lynette Carias PT, DPT, CLT [facility] [place], [place]
[2021-10-27] MEDS: Metoprolol CR 100 MG TABCR PO (11:45)
== END 2021-10-27 12:15 | disposition home or self-care (01) | DRG 310 ==
LOC: ER 12:52 → ICU 15:42 → MS 10-27 09:45 → ICU 10-29 13:09 → MS 10-29 13:36
PROVIDERS: Admitting Provider Internal Medicine; Emergency Provider Emergency Medicine; Visit Provider Internal Medicine
DX: R00.1 Bradycardia, unspecified (principal); T44.7X5A Adverse effect of beta-adrenoreceptor antagonists, initial encounter; I25.10 Atherosclerotic heart disease of native coronary artery without angina pectoris; N40.0 Benign prostatic hyperplasia without lower urinary tract symptoms; E11.9 Type 2 diabetes mellitus without complications; E78.5 Hyperlipidemia, unspecified; I10 Essential (primary) hypertension; I95.9 Hypotension, unspecified; R00.8 Other abnormalities of heart beat; Z79.01 Long term (current) use of anticoagulants; I25.2 Old myocardial infarction; Z95.5 Presence of coronary angioplasty implant and graft; I48.91 Unspecified atrial fibrillation; Z79.82 Long term (current) use of aspirin; Z79.84 Long term (current) use of oral hypoglycemic drugs
CPT/HCPCS: 80048; 80053; 84145; 87637; 93005; 93308; 96361; 96374; 97161; 99284; 99285; J1650; 71046; 81003; 83735; 84484; 85025; 85610; 85730; 86140; 93010; 99220; 99225; 99239; G0378; J0610

== ENCOUNTER 2021-11-05 04:44 | Outpatient (CLI) | payer MEDICARE, BC, SELFPAY ==
--- NOTE | 2021-12-13 13:47 | W.CARDEVENT ---
Date of service: 12/13/21 Time of Service: 13:47 Cardiac Event Recorder Referring Provider:: Mery Cherry Indications:: Bradycardia Cardiac Event Note: This is a 30-day event monitor obstensively ordered for bradycardia Predominant rhythm was sinus. Average heart rate overall was 76. Minimum was 55, maximum 108 There was several episodes of paroxysmal atrial fibrillation. Average heart rate while in atrial fibrillation was 88 There were ventricular ectopic beats There were several runs of what was either ventricular tachycardia or atrial fibrillation with a Felix C. The longest of these was 6 beats in duration No patient symptoms were reported There was no high-grade AV block, no pauses greater than 3 seconds
== END 2021-11-05 04:45 ==
LOC: RT 04:44
PROVIDERS: Visit Provider Internal Medicine
DX: R00.1 Bradycardia, unspecified (principal); I48.0 Paroxysmal atrial fibrillation
CPT/HCPCS: 93270

== ENCOUNTER 2021-12-11 08:10 | Outpatient (CLI) | payer MEDICARE, BC, SELFPAY ==
--- NOTE | 2021-12-11 08:00 | RT.EKG_ITS ---
APPROVED REPORT Exam: Resting ECG Reason for Exam: bradycardia Patient Location: O HR:65 bpm ECG Measurements Heart Rate 65 AXIS SD 146 P 23 QRSd 85 QRS -6 QT 397 T 86 QTc 413 Conclusion Sinus rhythm...normal P axis, V-rate 50- 99 Posterior infarct, old...prom R T, V1-V3 or Q >40mS, V7-V9
== END 2021-12-11 08:11 | disposition home or self-care (01) ==
LOC: DI.CARD 08:11
PROVIDERS: Visit Provider Internal Medicine Cardiovascular Disease
DX: R00.1 Bradycardia, unspecified (principal); I48.0 Paroxysmal atrial fibrillation; I25.2 Old myocardial infarction
CPT/HCPCS: 93010

== ENCOUNTER → 2021-12-11 09:23 | Outpatient (BNVA) | payer MEDICARE, BC, SELFPAY | PROVIDERS: Visit Provider Internal Medicine Cardiovascular Disease | DX: I48.0 Paroxysmal atrial fibrillation (principal); I25.10 Atherosclerotic heart disease of native coronary artery without angina pectoris; I10 Essential (primary) hypertension | CPT/HCPCS: 93005; 99203; 99214 ==

== ENCOUNTER 2021-12-13 13:47 | Outpatient (CLI) | payer MEDICARE, BC, SELFPAY | END 2021-12-13 13:48 | LOC: CARDOPNVT 12-24 09:51 | PROVIDERS: PCP Family Medicine; Referring Provider Internal Medicine; Visit Provider Internal Medicine Cardiovascular Disease | DX: R00.1 Bradycardia, unspecified (principal); I48.0 Paroxysmal atrial fibrillation | CPT/HCPCS: 93272 ==